=== PATIENT | female | born 1980 | race Caucasian/White ===

== ENCOUNTER 2019-06-21 15:31 | Emergency (ER) | payer MEDICAID ==
[~2019-06-21] VITALS: Ht 170.2 cm; Wt 54.4 kg
--- NOTE | 2019-06-21 17:33 | NUR ---
ED Nurse Note: pt ambulated to ed c/o nausea x 2 weeks. pt states shes been alcohol for 90 days.
[2019-06-21 17:34] VITALS: BP 111/71
--- NOTE | 2019-06-21 17:46 | Emergency Room Report ---
History of Present Illness General Chief Complaint: Nausea Source: Patient Present Illness HPI This is a 39-year-old female who presents with nausea for the past few months. 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 She is currently in an outpatient rehab center. She is taking Suboxone and gabapentin and she believes the medication is making her feel nauseous. She has not seen a doctor for the symptoms yet. Yesterday somebody gave her a Zofran tablet and she felt much better. She denies any vomiting, fever, pain, dizziness, any other symptoms. Patient is unsure about status but had a negative test last week and has an appointment with her [employer] in 2 days for further follow-up. Allergies: Coded Allergies: No Known Allergies (Unverified , 06/21/19) Patient History Past Medical History: see triage record Last Menstrual Period: unk Now: No Reviewed Nursing Documentation: PMH: Agreed; PSxH: Agreed Nursing Documentation-PMH Past Medical History: No History, Except For Review of Systems All Other Systems: negative except mentioned in HPI Physical Exam Vital Signs Date Time Temp Pulse Resp B/P (MAP) Pulse Ox O2 Delivery O2 Flow Rate FiO2 06/21/19 15:46 98.6 87 20 111/71 (84) 100 Room Air Sp02 EP Interpretation: reviewed, normal General Appearance: normal inspection, well appearing, no apparent distress, alert, GCS 15, non-toxic ENT: EOM grossly intact, normal pharynx, normal voice, TMs + canals normal, uvula midline Neck: normal inspection, full range of motion, supple, thyroid normal, no meningismus, no bony tend Respiratory: chest non-tender, lungs clear, normal breath sounds, no respiratory distress Cardiovascular #1: normal peripheral pulses, regular rate, rhythm Cardiovascular #2: 2+ radial (R), 2+ radial (L) Gastrointestinal: normal inspection, normal bowel sounds, non tender, soft, no mass, no organomegaly, no guarding, no rebound Genitourinary: no CVA tenderness Musculoskeletal: normal inspection, normal range of motion, no calf tenderness , gait/station normal, non-tender Neurologic: alert, motor strength/tone normal, digital archivist III-XII nml as tested, oriented x3, sensory intact, speech normal Psychiatric: judgement/insight normal, mood/affect normal Skin: no rash, normal color, warm/dry Lymphatic: no adenopathy Medical Decision Making PA Attestation Dr. Granger is my supervising physician whom patient management and care has been discussed with. Diagnostic Impression: Primary Impression: Nausea ER Course Pt. presents to the ED c/o nausea for several months since becoming sober and starting on Suboxone. Ddx considered but are not limited to medication reaction, withdrawal, . Vital signs: are WNL, pt. is afebrile H&PE are most consistent with medication reaction/withdrawal. ORDERS: none required at this time, the diagnosis is clinical ED INTERVENTIONS: Given 4 mg PO Zofran with relief. DISCHARGE: At this time pt. is stable for d/c to home. Tolerating PO fluids. Will provide printed patient care instructions, and prescription for Zofran. Care plan and follow up instructions have been discussed with the patient prior to discharge. Last Vital Signs Date Time Temp Pulse Resp B/P (MAP) Pulse Ox O2 Delivery O2 Flow Rate FiO2 06/21/19 17:34 98.6 87 20 111/71 100 Room Air Disposition: HOME, SELF-CARE Condition: Stable Scripts Ondansetron* (ZOFRAN*) 4 Mg Tablet 4 MG ORAL Q8HR PRN for Nausea & Vomiting, #10 TAB Prov: Elen Thayer N. PKeke 06/21/19 Elen Thayer PKeke Jun 21, 2019 17:46
[2019-06-21] MEDS ORDERED: ZOFRAN4 M3 ORAL (17:48)
[2019-06-21 17:49] VITALS: BP 124/73
--- NOTE | 2019-06-21 17:50 | NUR ---
ER DISCHARGE NOTE: Patient is cleared to be discharged per ERMD, pt is aox4, on room air, with stable vital signs. pt was given dc and prescription instructions, pt was able to verbalize understanding, pt id bandremoved. pt is able to ambulate with steady gait. pt took all belongings.
== END 2019-06-21 17:50 | disposition home or self-care (01) ==
LOC: EMR 17:45
DX: R11.0 Nausea (principal)
CPT/HCPCS: 99282